=== PATIENT | female | born 1965 | race Caucasian/White ===

== ENCOUNTER 2020-07-30 07:51 | Day surgery (SDC) | payer OTHER, SELFPAY ==
[~2020-07-30] VITALS: Ht 160 cm; Wt 63.0 kg
[2020-07-30] MEDS ORDERED: MIDAZOLAM 5 MG/5 ML VIAL ONE (11:51)
[2020-07-30] MEDS ORDERED: diphenhydrAMINE 50 MG/ML VIAL ONE (11:51)
[2020-07-30] MEDS ORDERED: fentaNYL citrate 0.05 MG/ML VIAL ONE (11:51)
[2020-07-30] MEDS ORDERED: LIDOCAINE 2% 100 MG/5 ML UJET TP ONE ×2 (11:51→13:15)
[2020-07-30] MEDS ORDERED: fentaNYL citrate 0.05 MG/ML VIAL IVP ONE (13:15)
[2020-07-30] MEDS ORDERED: MIDAZOLAM 2 MG/2 ML VIAL IVP ONE (13:15)
== END 2020-07-30 12:49 | disposition home or self-care (01) ==
LOC: MDS 07:51 → MMU 07:52 → MDS 12:49
PROVIDERS: ATTEND Internal Medicine Gastroenterology
DX: Z12.11 Encounter for screening for malignant neoplasm of colon (principal); I10 Essential (primary) hypertension; F41.9 Anxiety disorder, unspecified; F32.9 Major depressive disorder, single episode, unspecified; Z20.828 Contact with and (suspected) exposure to other viral communicable diseases; F17.210 Nicotine dependence, cigarettes, uncomplicated; Z79.899 Other long term (current) drug therapy
CPT/HCPCS: 45378; J2250; J3010; U0003; J1200